=== PATIENT | male | born 1990 | race African-American/Black ===

== ENCOUNTER 2019-02-04 03:01 | Emergency (ER) | payer OTHER ==
[~2019-02-04] VITALS: Ht 195.6 cm; Wt 122.7 kg
[2019-02-04] MEDS ORDERED: MAPA500T2 PO (03:06)
[2019-02-04] MEDS ORDERED: NS 1,000 ML IV ONE (03:45)
[2019-02-04] MEDS ORDERED: ONDANSETRON 4MG/2ML VIAL (J2405) IV ONE (03:45)
[2019-02-04] MEDS ORDERED: KETOROLAC 30 MG/ML VIAL (J1885) IV ONE (03:45)
[2019-02-04 04:01] LABS: BASO % 0.6 % (0.0-1.0); HEMATOCRIT 48.1 % (42.0-52.0); HEMOGLOBIN 16.2 g/dl (13.5-17.5); LYMPH # 0.7 10^3/uL (1.5-6.5); LYMPH % 12.8 % (24.0-44.0); MEAN CORPUSCULAR HEMOGLOBIN 30.9 pg (27.0-33.0); MEAN CORPUSCULAR HGB CONC 33.7 g/dl (32.0-36.5); MEAN CORPUSCULAR VOLUME 91.6 fl (80.0-96.0); MONO # 0.9 10^3/uL (0.0-0.8); MONO % 17.2 % (0.0-5.0); NEUTROPHILS # 3.6 10^3/uL (1.8-7.7); NEUTROPHILS % 69.2 % (36.0-66.0); PLATELET COUNT, AUTOMATED 158 10^3/uL (150-450); RED BLOOD COUNT 5.25 10^6/uL (4.30-6.10); WHITE BLOOD COUNT 5.2 10^3/uL (4.0-10.0)
[2019-02-04 04:04] LABS: INFLUENZA A AMPLIFICATION POSITIVE (NEGATIVE); INFLUENZA B AMPLIFICATION NEGATIVE (NEGATIVE)
[2019-02-04 04:30] LABS: ALBUMIN 4.1 GM/DL (3.2-5.2); ALT/SGPT 50 U/L (12-78); BILIRUBIN,DIRECT < 0.1 MG/DL (0.0-0.2); BILIRUBIN,TOTAL 0.3 MG/DL (0.2-1.0); BLOOD UREA NITROGEN 15 MG/DL (7-18); CALCIUM LEVEL 8.9 MG/DL (8.5-10.1); CARBON DIOXIDE LEVEL 29 MEQ/L (21-32); CHLORIDE LEVEL 103 MEQ/L (98-107); GLOMERULAR FILTRATION RATE > 60.0 (>60); GLUCOSE, FASTING 91 MG/DL (70-100); LIPASE 99 U/L (73-393); POTASSIUM SERUM 4.2 MEQ/L (3.5-5.1); SODIUM LEVEL 138 MEQ/L (136-145); TOTAL PROTEIN 7.3 GM/DL (6.4-8.2)
[2019-02-04] MEDS ORDERED: ONDA4TAB6 PO ×2 (05:07→05:27)
[2019-02-04] MEDS ORDERED: OSEL75CA PO ×2 (05:07→05:27)
[2019-02-04] MEDS ORDERED: OSELTAMIVIR PHOSPHATE 75 MG CAP (TAMIFLU) PO ONE (05:15)
[2019-02-04 05:19] VITALS: BP 119/62
== END 2019-02-04 05:30 | disposition home or self-care (01) ==
LOC: M ED 03:01
DX: J09.X3 Influenza due to identified novel influenza A virus with gastrointestinal manifestations (principal)
CPT/HCPCS: 36415; 80048; 80076; 83690; 85025; 87502; 87880; 96361; 96374; 96375; 99284; J1885; J2405

== ENCOUNTER 2019-02-06 00:14 | Emergency (ER) | payer OTHER ==
[~2019-02-06] VITALS: Ht 195.6 cm; Wt 122.7 kg
[~2019-02-06 00:14] MED LIST: MAPA500T2 PO; ONDA4TAB6 PO; OSEL75CA PO
[2019-02-06 03:17] LABS: BASO % 0.2 % (0.0-1.0); EOS % 0.5 % (0.0-3.0); HEMATOCRIT 47.4 % (42.0-52.0); HEMOGLOBIN 16.6 g/dl (13.5-17.5); LYMPH # 1.4 10^3/uL (1.5-6.5); LYMPH % 25.4 % (24.0-44.0); MEAN CORPUSCULAR HEMOGLOBIN 31.2 pg (27.0-33.0); MEAN CORPUSCULAR VOLUME 89.1 fl (80.0-96.0); MONO # 0.7 10^3/uL (0.0-0.8); NEUTROPHILS # 3.4 10^3/uL (1.8-7.7); NEUTROPHILS % 61.7 % (36.0-66.0); PLATELET COUNT, AUTOMATED 169 10^3/uL (150-450); RED BLOOD COUNT 5.32 10^6/uL (4.30-6.10); WHITE BLOOD COUNT 5.5 10^3/uL (4.0-10.0)
[2019-02-06] MEDS ORDERED: KETOROLAC 30 MG/ML VIAL (J1885) IV ONE (03:30)
[2019-02-06] MEDS ORDERED: ONDANSETRON 4MG/2ML VIAL (J2405) IV ONE (03:30)
[2019-02-06] MEDS ORDERED: NS 1,000 ML IV ONE (03:30)
[2019-02-06 03:53] LABS: ALBUMIN 3.9 GM/DL (3.2-5.2); ALT/SGPT 61 U/L (12-78); BILIRUBIN,DIRECT 0.1 MG/DL (0.0-0.2); BILIRUBIN,TOTAL 0.3 MG/DL (0.2-1.0); BLOOD UREA NITROGEN 13 MG/DL (7-18); CALCIUM LEVEL 8.4 MG/DL (8.5-10.1); CARBON DIOXIDE LEVEL 25 MEQ/L (21-32); CHLORIDE LEVEL 104 MEQ/L (98-107); CREATININE FOR GFR 1.22 MG/DL (0.70-1.30); GLOMERULAR FILTRATION RATE > 60.0 (>60); GLUCOSE, FASTING 86 MG/DL (70-100); LIPASE 63 U/L (73-393); SODIUM LEVEL 138 MEQ/L (136-145); TOTAL PROTEIN 6.8 GM/DL (6.4-8.2)
[2019-02-06] MEDS: GASTROGRAFIN SOLUTION 30ML PO SCH ×2 (04:00→04:18)
[2019-02-06] MEDS ORDERED: ISOVUE-370 76% 125ML VIAL (Q9967 PER ML) As Ordered ONE (05:21)
--- NOTE | 2019-02-06 07:01 | REPVR ---
EXAM: CT Abdomen and Pelvis With Contrast EXAM DATE/TIME: 02/06/2019 3:21 AM CLINICAL HISTORY: 29 years old, male; Pain; Abdominal pain; Generalized; Patient HX: Cramps; Additional info: Diffuse abd pain TECHNIQUE: Axial computed tomography images of the abdomen and pelvis with intravenous contrast. All CT scans at this facility use at least one of these dose optimization techniques: automated exposure control; mA and/or kV adjustment per patient size (includes targeted exams where dose is matched to clinical indication); or iterative reconstruction. Coronal and sagittal reformatted images were created and reviewed. CONTRAST: Contrast Material: 100 ml of iso; Contrast Route: ac COMPARISON: No relevant prior studies available. FINDINGS: Lower thorax: Question of minimal left infrahilar infiltrate. ABDOMEN: Liver: Normal. No mass. Gallbladder and bile ducts: Normal. No calcified stones. No ductal dilation. Pancreas: Normal. No ductal dilation. Spleen: Normal. No splenomegaly. Adrenals: Normal. No mass. Kidneys and ureters: Minimal nonobstructing left renal calculus. Stomach and bowel: Wall thickening of the gastric antrum which may reflect a contraction, however, the opacified lumen is irregular and suggests fold thickening and possible ulceration. There is slight adjacent induration suggesting antral gastritis. Appendix: A normal appendix is seen. PELVIS: Bladder: There is bladder wall thickening, however, the bladder is nondistended and is nonspecific. Reproductive: Unremarkable as visualized. ABDOMEN and PELVIS: Intraperitoneal space: Normal. No free air. No significant fluid collection. Bones/joints: No acute fracture. No dislocation. Soft tissues: Unremarkable. Vasculature: Normal. No abdominal aortic aneurysm. Lymph nodes: Normal. No enlarged lymph nodes. IMPRESSION: 1. Suggestion of antral gastritis and PUD. 2. Question of minimal left infrahilar infiltrate. 3. Minimal nonobstructing left renal calculus. 4. Otherwise negative CT abdomen/pelvis. Electronically signed by: Joss Douglas On 02/06/2019 07:00:51 AM
[2019-02-06] MEDS ORDERED: PROT1TAB2 PO (07:17)
[2019-02-06 07:24] VITALS: BP 124/71
--- NOTE | 2019-02-06 09:54 | ED PDOC ---
Post-Departure Follow-Up ft ashish jovel faxed formal report of ct abd/p for fu Moo Humphreys MD Feb 06, 2019 09:54
== END 2019-02-06 07:30 | disposition home or self-care (01) ==
LOC: M ED 00:14
DX: J09.X3 Influenza due to identified novel influenza A virus with gastrointestinal manifestations (principal); K29.70 Gastritis, unspecified, without bleeding; F17.200 Nicotine dependence, unspecified, uncomplicated; Z79.899 Other long term (current) drug therapy
CPT/HCPCS: 36415; 74177; 80048; 80076; 83690; 85025; 93041; 96374; 96375; 99284; J1885; J2405; Q9963; Q9967

== ENCOUNTER 2019-12-16 03:14 | Emergency (ER) | payer OTHER ==
[~2019-12-16] VITALS: Ht 195.6 cm; Wt 133.1 kg
[~2019-12-16 03:14] MED LIST changes: +PROT1TAB2 PO
[2019-12-16] MEDS ORDERED: CHAN1PAK13 PO (03:19)
[2019-12-16 06:39] VITALS: BP 123/61
--- NOTE | 2019-12-16 12:47 | REP ---
LEFT ANKLE COMPLETE: 12/16/2019. Clinical history: Ankle pain. Reinjured ankle after sprain in September. Findings: Four views are provided. The mortise joint symmetric and preserved. No talar dome osteochondral defect. No visible fracture or focal lesion in the tibia or fibula included. Subtalar joints intact. No heel spurs. Talonavicular and calcaneocuboid joints are normal. Visualized tarsal bones and metatarsals intact. Some soft tissue swelling about the ankle. Impression: 1. No fracture, avulsion, disruption of the mortise joint or other acute bony finding. 2. Soft tissue swelling about the ankle. Electronically Signed by Maco Chacon MD 12/16/2019 08:25 P
== END 2019-12-16 08:02 | disposition home or self-care (01) ==
LOC: M ED 03:14
DX: S93.402A Sprain of unspecified ligament of left ankle, initial encounter (principal); Y92.9 Unspecified place or not applicable; Y93.9 Activity, unspecified; Y99.9 Unspecified external cause status; Z79.899 Other long term (current) drug therapy